=== PATIENT | male | born 1985 | race Caucasian/White ===

== ENCOUNTER 2016-10-26 20:33 | Emergency (ER) | payer OTHER ==
[~2016-10-26] VITALS: Ht 177.8 cm; Wt 111.0 kg
[~2016-10-26 20:33] MED LIST: PROT40TA PO; VENTAER INH; ZOFR8TAB PO
[2016-10-26 20:47] VITALS: BP 125/76; PULSE 124; RESP 14; TEMP 98.5; O2SAT 96
[2016-10-26 20:55] VITALS: BP 156/73; PULSE 118; RESP 16; O2SAT 96
[2016-10-26] MEDS ORDERED: VENTAER INH (21:04)
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
[2016-10-26] MEDS ORDERED: TETANUS/DIPHTHERIA TOXOID ADULT 0.5 ML VIAL IM ONE (21:15)
[2016-10-26] MEDS ORDERED: DOXYCYCLINE HYCLATE 100 MG CAP PO ONE (21:15)
[2016-10-26] MEDS ORDERED: CEPHALEXIN MONOHYDRATE 500 MG CAP PO ONE (21:15)
[2016-10-26] MEDS ORDERED: CEPH500C PO ×2 (21:15→21:32)
[2016-10-26] MEDS ORDERED: DOXY100C PO ×2 (21:15→21:32)
[2016-10-26 21:30] VITALS: BP 133/61; PULSE 116; RESP 14; O2SAT 96
== END 2016-10-26 21:51 | disposition home or self-care (01) ==
LOC: PHED 20:33
DX: S81.811A Laceration without foreign body, right lower leg, initial encounter (principal); J45.909 Unspecified asthma, uncomplicated; W45.8XXA Other foreign body or object entering through skin, initial encounter; Z23 Encounter for immunization
CPT/HCPCS: 90472; 90714; 99284